=== PATIENT | male | born 1965 | race Caucasian/White ===

== ENCOUNTER 2019-03-23 12:39 | Emergency (ER) | payer BC, MEDICARE ==
[2019-03-23] MEDS ORDERED: Ondansetron PF 4 MG/2 ML Vial ONE (13:36)
[2019-03-23] MEDS ORDERED: Acetaminophen 500 MG TAB ONE (13:36)
[2019-03-23] MEDS ORDERED: Morphine 10 MG/ML VIAL ONE (13:36)
[2019-03-23] MEDS ORDERED: Morphine 4 MG/ML VIAL ONE (13:36)
[2019-03-23 13:51] LABS: #Lymphocytes 0.9 thou/uL (1.20-3.40); #Monocytes 0.2 thou/uL (0.11-0.59); #Neutrophils 7.3 thou/uL (1.40-6.50); %Basophils 0.2 % (0.0-1.0); %Eosinophils 0.2 % (0.0-10.0); %Lymphocytes 10.3 % (21.0-51.0); %Monocytes 2.6 % (0.0-10.0); %Neutrophils 86.7 % (42.0-75.0); Hemoglobin 15.4 g/dL (14.0-18.0); Mean Corpuscular Hemoglobin 29.4 pg (27.0-31.0); Mean Corpuscular Volume 86.4 fL (78.0-98.0); Mean Platelet Volume 8.6 fL (7.4-10.4); Platelet Count 213 thou/uL (130-400); RBC Distribution Width 11.9 % (11.5-14.5); Red Blood Cell (RBC) Count 5.25 mill/uL (4.70-6.10); White Blood Cell (WBC) Count 8.4 thou/uL (4.8-10.8)
[2019-03-23 13:59] LABS: PTT 34.8 SEC (22.9-36.1); Prothrombin Time 13.2 SEC (12.0-14.7)
[2019-03-23 14:00] LABS: Bilirubin Negative (Negative); Blood, Urine Negative (Negative); Clarity Clear (Clear); Glucose, Urine (Dipstick) Normal (Negative); Leukocyte Negative Leu/uL (Negative); Nitrite Negative (Negative); Protein, Urine (Dipstick) Negative (Neg-Trace); Urobilinogen Normal mg/dL (Less than 2)
[2019-03-23 14:12] LABS: ALT (SGPT) 34 U/L (8-55); AST (SGOT) 16 U/L (5-34); Albumin 4.6 g/dL (3.5-5.0); Alkaline Phosphatase 76 U/L (40-110); Anion Gap 11 mmol/L (10-20); BUN (Urea Nitrogen) 16 mg/dL (8.4-25.7); Bilirubin, Total 0.5 mg/dL (0.2-1.2); Calc. Creatinine Clearance 0 mL/min (70-130); Calcium 9.7 mg/dL (7.8-10.44); Carbon Dioxide 30 mmol/L (22-29); Chloride 104 mmol/L (98-107); Estimated GFR-MDRD 69; Globulin 3.1 g/dL (2.4-3.5); Glucose 116 mg/dL (70-105); Protein, Total 7.7 g/dL (6.0-8.3); Sodium 140 mmol/L (136-145)
[2019-03-23] MEDS ORDERED: Diazepam 5 MG TAB ONE (14:15)
--- NOTE | 2019-03-23 15:54 | MRI ---
MRI LUMBAR SPINE WITHOUT IV CONTRAST: INDICATION: Low back pain. COMPARISON: Prior exam dated 12/13/2017. FINDINGS: There is loss of normal disk signal and height at L1-2, L2-3, L4-5, and L5-S1. Conus is seen to term inate at approximately L1. Visualized retroperitoneum and paravertebral soft tissues appear within normal limits. At L5-S1, there is an asymmetric to the left broad-based bulge causing mild narrowing of the left lat eral recess without definite impingement. There is mild neural foramina narrowing without definite i mpingement of the exiting L5 nerve roots. At L4-5, there is an asymmetric to right broad-based bulge that induces moderate to severe right and mild left neural foraminal narrowing which is stable to the prior exam. At L3-4, there is a broad-based bulge inducing mild to moderate bilateral neural foraminal narrowing, right greater than left. At L2-3, there is a broad-based bulge and facet hypertrophy inducing mild neural foraminal narrowing. At L1-L2, there is a broad-based bulge, but no appreciable central canal or neural foraminal narrowin g. At T12-L1, there is no appreciable central canal or neural foraminal narrowing. IMPRESSION: 1. Largely stable multilevel spondylosis of the lumbar spine with stable moderate to severe right an d mild left neural foraminal narrowing at L4-5. 2. Mild to moderate bilateral neural foraminal narrowing at L3-4, right greater than left, is stable to prior exam. POS: CET
== END 2019-03-23 16:20 | disposition home or self-care (01) ==
LOC: ERS 12:39
DX: M54.41 Lumbago with sciatica, right side (principal); M51.26 Other intervertebral disc displacement, lumbar region
CPT/HCPCS: 36415; 72148; 80053; 81003; 85025; 85610; 85730; J2270; J2405

== ENCOUNTER 2019-03-29 08:46 | Emergency (ER) | payer BC | END 2019-03-29 10:16 | LOC: ERS 08:46 | DX: M54.5 Low back pain (principal); R20.0 Anesthesia of skin; Z79.899 Other long term (current) drug therapy | CPT/HCPCS: 99283 ==

== ENCOUNTER 2019-04-25 09:56 | Outpatient (CLI) | payer BC ==
--- NOTE | 2019-04-25 10:29 | RAD ---
XR Lumbar Spine 2 Or 3 View HISTORY: Follow-up surgery. COMPARISON: None. FINDINGS: Right unilateral pedicle screws at L4-5 is been placed. There are markers of the disc impla nt are within the confines of the disc level. Moderate disc narrowing is seen at the L5-S1 level. IMPRESSION: Right unilateral pedicle screw placement at L4-5. Disc implant also seen at this level.
== END 2019-04-25 09:57 | disposition home or self-care (01) ==
LOC: TBSIIMAG 09:56
PROVIDERS: ATTEND Neurological Surgery
DX: M54.16 Radiculopathy, lumbar region (principal); Z96.7 Presence of other bone and tendon implants
CPT/HCPCS: 72100

== ENCOUNTER 2020-07-09 08:54 | Outpatient (CLI) | payer BC | END 2020-07-09 08:55 | disposition home or self-care (01) | LOC: TBSIIMAG 08:54 | PROVIDERS: ATTEND Physician Assistant | DX: M47.26 Other spondylosis with radiculopathy, lumbar region (principal); M50.30 Other cervical disc degeneration, unspecified cervical region; M47.812 Spondylosis without myelopathy or radiculopathy, cervical region; Z98.1 Arthrodesis status; Z98.890 Other specified postprocedural states | CPT/HCPCS: 72040; 72100 ==

== ENCOUNTER 2023-04-04 17:00 | Outpatient (CLI) | payer BC | END 2023-04-04 17:01 | disposition home or self-care (01) | LOC: SLEEPLAB 17:00 | PROVIDERS: ATTEND Family Medicine | DX: G47.33 Obstructive sleep apnea (adult) (pediatric) (principal); G47.10 Hypersomnia, unspecified; R53.83 Other fatigue; R40.0 Somnolence | CPT/HCPCS: 95800 ==